=== PATIENT | female | born 1995 | race Caucasian/White ===

== ENCOUNTER 2017-09-30 16:00 | Emergency (ER) | payer BC ==
[2017-09-30] MEDS ORDERED: Albuterol/Ipratropium 3.0-0.5 MG/3 ML Neb Soln NEB ONE (16:06)
--- NOTE | 2017-09-30 16:12 | EDM.PDOC ---
ED HPI GENERAL MEDICAL PROBLEM - General Stated Complaint: ASTHMA Time Seen by Provider: 09/30/17 16:00 Source of Information: Reports: Patient, Family (friend) History Limitations: Reports: Respiratory Distress - History of Present Illness INITIAL COMMENTS - FREE TEXT/NARRATIVE: 22 years old w f with a H/O asthma, moved from [facility] to [place] and forgot her Inhalers and her breathing Machine. Both items are still in [facility]. She smokes cigarets and Marijuana. She woke came to the ED with her friend due to sob in the past few hours. No C/P, no N/V or any other acute medical issues. BP 119/75 Pulse 71 RR 20 Temp 97.2 O2 sat Onset Date: 09/30/17 Onset Time: 05:00 Duration: Hour(s):, Intermittent Location: Reports: Chest Quality: Reports: Same as Previous Episode Severity: Moderate Improves with: Reports: Medication, Rest Worsens with: Reports: Movement Context: Reports: Other (H/O astma, smoker, left her meds in [facility]. Moved to [facility] for now, smokes marijuana as well) Associated Symptoms: Reports: Cough, Shortness of Breath - Related Data Allergies Allergy/AdvReac Type Severity Reaction Status Date / Time codeine Allergy Vomiting Verified 09/30/17 16:25 medical tape Allergy Rash Uncoded 09/30/17 16:26 Home Meds: Home Meds .Bipolar Medication 1 tab PO BEDTIME 09/30/17 [History] Aspirin [Adult Aspirin] 81 mg PO BEDTIME 09/30/17 [History] ED ROS GENERAL - Review of Systems Review Of Systems: See Below Constitutional: Reports: No Symptoms HEENT: Reports: No Symptoms Respiratory: Reports: Shortness of Breath, Wheezing Cardiovascular: Reports: No Symptoms Endocrine: Reports: No Symptoms GI/Abdominal: Reports: No Symptoms : Reports: No Symptoms Musculoskeletal: Reports: No Symptoms Skin: Reports: No Symptoms Neurological: Reports: No Symptoms Psychiatric: Reports: No Symptoms Hematologic/Lymphatic: Reports: No Symptoms Immunologic: Reports: No Symptoms ED EXAM, GENERAL - Physical Exam Exam: See Below Exam Limited By: Respiratory Distress General Appearance: Alert, WD/WN, Mild Distress, Moderate Distress Eye Exam: Bilateral Eye: Normal Inspection Nose: Normal Inspection, Normal Mucosa, No Blood Throat/Mouth: Normal Inspection, Normal Lips, Normal Gums, No Airway Compromise , Other (poor dentition) Head: Atraumatic, Normocephalic Neck: Normal Inspection, Supple, Non-Tender, Full Range of Motion Respiratory/Chest: Respiratory Distress, Decreased Breath Sounds, Wheezing Cardiovascular: Normal Peripheral Pulses, Regular Rate, Rhythm, No Edema, No Gallop, No JVD, No Murmur, No Rub Peripheral Pulses: 1+: Radial (R) GI/Abdominal: Normal Bowel Sounds, Soft, Non-Tender, No Organomegaly, No Distention, No Abnormal Bruit, No Mass, Pelvis Stable (Female) Exam: Deferred Rectal (Female) Exam: Deferred Back Exam: Normal Inspection, Full Range of Motion Extremities: Normal Inspection, Normal Range of Motion, Non-Tender, No Pedal Edema, Normal Capillary Refill Neurological: Alert, Oriented, CN II-XII Intact, Normal Cognition, Normal Gait, No Motor/Sensory Deficits Psychiatric: Normal Affect, Normal Mood Skin Exam: Warm, Dry, Intact, Normal Color, No Rash Lymphatic: No Adenopathy Course - Vital Signs Text/Narrative:: 22 years old w f with a H/O asthma, moved from [facility] to [place] and forgot her Inhalers and her breathing Machine. Both items are still in [facility]. She smokes cigarets and Marijuana. She woke came to the ED with her friend due to sob in the past few hours. No C/P, no N/V or any other acute medical issues. BP 119/75 Pulse 71 RR 20 Temp 97.2 O2 sat 100% PE: WNWD W F with exp wheezes, H/O Asthma Impression: Asthma exacerbation, non compliance Tx: Porsha Reexam: SOB subsided, 100% improvement Plan: D/C with instructions Last Recorded V/S: Last Vital Signs Temp 36.5 C 09/30/17 16:10 Pulse 71 09/30/17 16:10 Resp 20 09/30/17 16:10 BP 119/75 09/30/17 16:10 Pulse Ox 100 09/30/17 16:10 - Orders/Labs/Meds Orders: Active Orders 24 hr Category Date Time Status RT Aerosol Therapy [RC] ASDIRECTED Care 09/30/17 16:06 Active Meds: Medications Discontinued Medications Generic Name Dose Route Start Last Admin Trade Name Freq PRN Reason Stop Dose Admin Albuterol/Ipratropium 3 ml 09/30/17 16:06 Duoneb 3.0-0.5 Mg/3 Ml NEB 09/30/17 16:07 ONETIME ONE Departure - Departure Time of Disposition: 16:29 Disposition: Home, Self-Care 01 Condition: Good Clinical Impression: Asthma exacerbation Qualifiers: Asthma severity: moderate Asthma persistence: unspecified Qualified Code(s): J45.901 - Unspecified asthma with (acute) exacerbation - Discharge Information Instructions: Asthma, Adult, Albuterol inhalation aerosol Referrals: PCP,Not In Area [Primary Care Provider] - Forms: ED Department Discharge, ED Return to Work/School Form Additional Instructions: Please quit tobacco and Marijuana use, please use the albuterol inhaler as recommended, please f/u with your PMD, come back if your symptoms get worse acutely - My Orders Last 24 Hours: My Active Orders 09/30/17 16:06 RT Aerosol Therapy [RC] ASDIRECTED - Assessment/Plan Last 24 Hours: My Active Orders 09/30/17 16:06 RT Aerosol Therapy [RC] ASDIRECTED
[2017-09-30] MEDS ORDERED: Albuterol 8 GM Inhaler INH ONE (16:28)
== END 2017-09-30 16:45 | disposition home or self-care (01) ==
LOC: FB.ED 16:00
DX: J45.901 Unspecified asthma with (acute) exacerbation (principal); Z88.5 Allergy status to narcotic agent
CPT/HCPCS: 94640; 99284; A9270-GY; J7620

== ENCOUNTER 2017-11-04 13:59 | Emergency (ER) | payer BC ==
--- NOTE | 2017-11-04 14:29 | EDM.PDOC ---
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 Pt came to the ed due to blurred vision. Pt is otherwise in her usual state of health. No N/V/D no SOB, No Dizziness. BP 122/70 RR 18 Pulse ox 100% Pulse 78 Temp 36.8 Onset: Today Onset Date: 11/04/17 Onset Time: 04:00 Duration: Hour(s): Location: Reports: Generalized Quality: Reports: Same as Previous Episode Severity: Mild Improves with: Reports: Rest Worsens with: Reports: Movement Context: Reports: Other Associated Symptoms: Reports: Other (blurred vision) - Related Data Allergies Allergy/AdvReac Type Severity Reaction Status Date / Time codeine Allergy Vomiting Verified 11/04/17 20:37 medical tape Allergy Rash Uncoded 11/04/17 20:37 Home Meds: Home Meds .Bipolar Medication 1 tab PO BEDTIME 09/30/17 [History] Aspirin [Adult Aspirin] 81 mg PO BEDTIME 09/30/17 [History] Past Medical History Respiratory History: Reports: Asthma - Past Surgical History Cardiovascular Surgical History: Reports: Other (See Below) Other Cardiovascular Surgeries/Procedures: 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 ED ROS GENERAL - Review of Systems Review Of Systems: See Below Constitutional: Reports: No Symptoms HEENT: Reports: Other (blurred vision) Respiratory: Reports: No Symptoms Cardiovascular: Reports: No Symptoms Endocrine: Reports: No Symptoms GI/Abdominal: Reports: No Symptoms : Reports: No Symptoms Musculoskeletal: Reports: No Symptoms Skin: Reports: No Symptoms Neurological: Reports: No Symptoms Psychiatric: Reports: No Symptoms Hematologic/Lymphatic: Reports: No Symptoms Immunologic: Reports: No Symptoms ED EXAM GENERAL W FULL EYE - Physical Exam Exam: See Below Exam Limited By: No Limitations General Appearance: Alert, WD/WN, No Apparent Distress Eye Exam: Bilateral Eye: Other (blurred vision ) Visual Acuity (R) 20/: 50 Visual Acuity (L) 20/: 50 With Correction: No Eyelids: Bilateral: Normal Appearance Conjunctiva & Sclera: Bilateral: Normal Appearance Pupils: Normal Accommodation Pupillary Size: Bilateral: 3 mm Pupillary Reaction: Bilateral: Brisk Ears: Normal External Exam Nose: Normal Inspection, Normal Mucosa Throat/Mouth: Normal Inspection Head: Atraumatic, Normocephalic Neck: Normal Inspection, Supple, Non-Tender Respiratory/Chest: No Respiratory Distress, Lungs Clear, Normal Breath Sounds Cardiovascular: Normal Peripheral Pulses, Regular Rate, Rhythm GI/Abdominal: Normal Bowel Sounds (Male) Exam: Deferred (Female) Exam: Deferred Rectal (Males) Exam: Deferred Rectal (Female) Exam: Deferred Back Exam: Normal Inspection Extremities: Normal Inspection Neurological: Alert, Oriented, CN II-XII Intact, Normal Cognition, Normal Gait, No Motor/Sensory Deficits Psychiatric: Normal Affect, Normal Mood Skin Exam: Warm, Dry, Intact, Normal Color, No Rash Lymphatic: No Adenopathy EKG INTERPRETATION EKG Date: 11/04/17 Time: 14:10 Rhythm: NSR Rate (Beats/Min): 78 [place]: Normal P-Wave: Present QRS: RBBB ST-T: Normal QT: Normal Comparison: NA - No Prior EKG Course - Vital Signs Text/Narrative:: 22 y.o.w.f was feeling weak at work and 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 Pt came to the ed due to blurred vision. Pt left her glasses in [place] [facility] is otherwise in her usual state of health. No N/V/D no SOB, No Dizziness. BP 122/70 RR 18 Pulse ox 100% Pulse 78 Temp 36.8 PE: WNWD W F NAD C/O blurred vision Visual acuity: 20/50 bilateral, not corrected. Pt left her glasses in [facility] Impression: Blurred vision Tx: None Plan: D/C with instructions Last Recorded V/S: Last Vital Signs Temp 36.8 C 11/04/17 14:00 Pulse 86 11/04/17 14:00 Resp 18 11/04/17 14:00 BP 122/70 11/04/17 14:00 Pulse Ox 100 11/04/17 14:00 Orthostatic Blood Pressure [ 121/84 Standing] Orthostatic Blood Pressure [ 122/63 Supine] - Orders/Labs/Meds Orders: Active Orders 24 hr Category Date Time Status Orthostatic Vital Signs [RC] ASDIRECTED Care 11/04/17 14:23 Active Visual Acuity [Vision Test] [RC] ASDIRECTED Care 11/04/17 15:41 Active DRUG SCREEN, URINE ALERE [URCHEM] Stat Lab 11/04/17 14:40 Ordered UA W/MICROSCOPIC [URIN] Stat Lab 11/04/17 14:40 Ordered EKG 12 Lead [EK] Routine Ther 11/04/17 14:05 Ordered Labs: Laboratory Tests 11/04/17 11/04/17 Range/Units 14:40 14:40 Urine Color [place] (YELLOW) Urine Appearance Slightly cloudy (CLEAR) Urine pH 8.0 H (5.0-6.5) Ur Specific [place] 1.015 (1.010-1.025) Urine Protein Negative (NEGATIVE) mg/dL Urine Glucose (UA) Normal (NEGATIVE) mg/dL Urine Ketones Negative (NEGATIVE) mg/dL Urine Occult Blood Large H (NEGATIVE) Urine Nitrite Negative (NEGATIVE) Urine Bilirubin Negative (NEGATIVE) Urine Urobilinogen Normal (NEGATIVE) mg/dL Ur Leukocyte Esterase Negative (NEGATIVE) Urine RBC 20-30 H (0) Urine WBC 0-5 (0) Ur Squamous Epith Cells Occasional (NS,R,O) Amorphous Sediment Few Urine Bacteria Rare H (NS) Urine Opiates Screen Negative (NEGATIVE) Ur Oxycodone Screen Negative (NEGATIVE) Ur Propoxyphene Screen Negative (NEGATIVE) Ur Barbituates Screen Negative (NEGATIVE) Ur Tricyclics Screen Negative (NEGATIVE) Ur Phencyclidine Scrn Negative (NEGATIVE) Ur Amphetamine Screen Negative (NEGATIVE) Urine MDMA Screen Negative (NEGATIVE) U Benzodiazepines Scrn Negative (NEGATIVE) U Cocaine Metab Screen Negative (NEGATIVE) U Marijuana (THC) Screen Negative (NEGATIVE) Departure - Departure Time of Disposition: 15:58 Disposition: Home, Self-Care 01 Condition: Good Clinical Impression: Blurred vision, bilateral Hematuria Qualifiers: Hematuria type: other microscopic Qualified Code(s): R31.29 - Other microscopic hematuria - Discharge Information Instructions: Nonspecific Chest Pain, [id number] Referrals: Suzanne Croft LAND ACQUISITION ANALYST [Primary Care Provider] - Forms: ED Return to Work/School Form Additional Instructions: Please f/u with your PMD, please come back if any symptoms get acutely worse - My Orders Last 24 Hours: My Active Orders 11/04/17 14:05 EKG 12 Lead [EK] Routine 11/04/17 14:23 Orthostatic Vital Signs [RC] ASDIRECTED 11/04/17 14:40 DRUG SCREEN, URINE ALERE [URCHEM] Stat UA W/MICROSCOPIC [URIN] Stat 11/04/17 15:41 Visual Acuity [Vision Test] [RC] ASDIRECTED - Assessment/Plan Last 24 Hours: My Active Orders 11/04/17 14:05 EKG 12 Lead [EK] Routine 11/04/17 14:23 Orthostatic Vital Signs [RC] ASDIRECTED 11/04/17 14:40 DRUG SCREEN, URINE ALERE [URCHEM] Stat UA W/MICROSCOPIC [URIN] Stat 11/04/17 15:41 Visual Acuity [Vision Test] [RC] ASDIRECTED
== END 2017-11-04 16:26 | disposition home or self-care (01) ==
LOC: FB.ED 13:59
DX: H53.8 Other visual disturbances (principal); R31.29 Other microscopic hematuria; Z88.5 Allergy status to narcotic agent; Z91.048 Other nonmedicinal substance allergy status
CPT/HCPCS: 80305; 81001; 93005; 99285

== ENCOUNTER 2017-11-17 13:25 | Emergency (ER) | payer SELFPAY ==
--- NOTE | 2017-11-20 10:59 | ER ---
DATE SEEN: 11/17/2017 TIME SEEN: The patient was seen at 1349 hours. HISTORY OF PRESENT ILLNESS: Mary is a 22-year-old woman who is a smoker who has asthma and depression, comes in onset of sore throat last night with fever. She complains of right ear discomfort, right throat discomfort. She has had tetralogy of Fallot surgery with correction of heart murmur. Otherwise, smokes. Alcohol negative. Street drugs negative. PAST MEDICAL HISTORY: Negative otherwise as noted above. ALLERGIES: Codeine and medical tape. REVIEW OF SYSTEMS: Negative. PHYSICAL EXAMINATION: VITAL SIGNS: Blood pressure 116/77, heart rate 85 and regular, respirations 18, oxygen saturation 100%, temperature 36.7 degrees centigrade. Weight 72.5 kg, 24.3 kg/m2. GENERAL: Alert woman who looks in moderate distress. She is attended by another friend. HEENT: ADAN. Intact. Pharynx, marked erythema and tonsillar enlargement. No exudate noted. NECK: Right neck, mild cervical adenopathy. Neck is supple. No bruits. LUNGS: Clear without rales or rhonchi. HEART: S1, S2. Soft systolic murmur, left parasternal, right parasternal, left midclavicular line, ribs 3, 4, 5, and 6. ABDOMEN: No hepatosplenomegaly. No jugular venous distention. S2 is greater than S1. Splitting of S3 and S4 and S1, has diastolic systolic gallop. EXTREMITIES: Without edema. ASSESSMENT: Streptococcal pharyngitis, positive strep throat. PLAN: The patient treated with penicillin VK 500 mg b.i.d., 20 tablets. Follow up with doctor as needed in next 1 to 2 weeks. Ibuprofen and Tylenol as needed. /[id number] REILLY/YASL
== END 2017-11-17 14:29 | disposition home or self-care (01) ==
LOC: FB.ED 13:25
DX: J02.0 Streptococcal pharyngitis (principal); F17.210 Nicotine dependence, cigarettes, uncomplicated; Z91.048 Other nonmedicinal substance allergy status
CPT/HCPCS: 87880-QW; 99283

== ENCOUNTER 2018-06-11 18:05 | Emergency (ER) | payer SELFPAY ==
--- NOTE | 2018-06-11 18:50 | EDM.PDOC ---
ED HPI GENERAL MEDICAL PROBLEM - General Chief Complaint: Chest Pain Stated Complaint: CHEST PAIN Time Seen by Provider: 06/11/18 18:15 Source of Information: Reports: Patient History Limitations: Reports: No Limitations - History of Present Illness INITIAL COMMENTS - FREE TEXT/NARRATIVE: Mary is a 22-year-old single smoking woman who works at the [place] [employer] does fairly heavy lifting noted onset 4-5 days ago 7-9/10 chest pain lasting 1/2-2 hours. The extent of her pain resolution is variable sometimes resolves when she puts her right arm to straight extension over her head. When she does this her heart pain sometimes goes way down to 3/10 hold goes away completely. She's had 2 heart surgeries 1) and 2 years ago and has been followed by shirring machine operator automatic from [facility]. Her last cardiology visit was 04/24. - Related Data Allergies Allergy/AdvReac Type Severity Reaction Status Date / Time codeine Allergy Vomiting Verified 11/17/17 13:38 medical tape Allergy Rash Uncoded 11/17/17 13:38 Home Meds: Home Meds .Bipolar Medication 1 tab PO BEDTIME 09/30/17 [History] Aspirin [Adult Aspirin] 81 mg PO BEDTIME 09/30/17 [History] Albuterol [Proventil HFA] 2 puff INH Q4H PRN 11/17/17 [History] Montelukast [Singulair] 10 mg PO DAILY 11/17/17 [History] Penicillin V Potassium 500 mg PO BID #20 tablet 11/17/17 [Rx] Past Medical History Cardiovascular History: Reports: Heart Murmur, Other (See Below) Other Cardiovascular History: Tetrology of fallot Respiratory History: Reports: Asthma Musculoskeletal History: Reports: Fracture Other Musculoskeletal History: hx bilat fx arms, dislocated R knee - Past Surgical History HEENT Surgical History: Reports: Oral Surgery Cardiovascular Surgical History: Reports: Other (See Below) Other Cardiovascular Surgeries/Procedures: 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 Social & Family History - Family History Family Medical History: Noncontributory - Caffeine Use Caffeine Use: Reports: Soda ED ROS GENERAL - Review of Systems Review Of Systems: ROS reveals no pertinent complaints other than HPI. ED EXAM, GENERAL - Physical Exam Exam: See Below Free Text/Narrative:: Pleasant happy woman in mild distress no diaphoresis. Normotensive no tachycardia. Exam Limited By: No Limitations General Appearance: Alert, Mild Distress Eye Exam: Bilateral Eye: Normal Inspection Ear Exam: Bilateral Ear: Auricle Normal, Canal Normal, TM normal Nose: Normal Inspection Throat/Mouth: Normal Inspection, Normal Lips, Normal Teeth, Normal Gums, Normal Oropharynx, Normal Voice, No Airway Compromise Head: Atraumatic, Normocephalic Neck: Normal Inspection, Supple Respiratory/Chest: No Respiratory Distress, Lungs Clear Cardiovascular: Normal Peripheral Pulses, Regular Rate, Rhythm, No Edema, No JVD , Other (S4 gallop left parasternal II/V dalal systolic with mild crescendo decrescendo component. ) Peripheral Pulses: 1+: Carotid (L), Carotid (R), Brachial (L), Brachial (R), Femoral (L), Femoral (R) GI/Abdominal: Normal Bowel Sounds, Soft, Non-Tender, No Organomegaly, No Distention, No Abnormal Bruit, No Mass (Female) Exam: Deferred Rectal (Female) Exam: Deferred Back Exam: Normal Inspection Extremities: Normal Inspection, Normal Range of Motion, Non-Tender, No Pedal Edema, Normal Capillary Refill Neurological: Alert, Oriented, CN II-XII Intact, Normal Cognition, Normal Gait, Normal Reflexes, No Motor/Sensory Deficits Psychiatric: Normal Affect, Normal Mood Skin Exam: Warm, Dry, Intact, Normal Color, No Rash Lymphatic: No Adenopathy EKG INTERPRETATION Rhythm: NSR Course - Orders/Labs/Meds Orders: Active Orders 24 hr Category Date Time Status EKG Documentation Completion [RC] ASDIRECTED Care 06/11/18 18:25 Active EKG Documentation Completion [RC] ASDIRECTED Care 06/11/18 18:26 Active CXR [Chest 1V Frontal] [CR] Stat Exams 06/11/18 18:40 Ordered CXR [Chest 2V] [CR] Stat Exams 06/11/18 18:26 Taken DRUG SCREEN, URINE ALERE [URCHEM] Urgent Lab 06/11/18 18:25 Ordered EKG 12 Lead [EK] Routine Ther 06/11/18 18:26 Ordered Labs: Laboratory Tests 06/11/18 06/11/18 06/11/18 Range/Units 18:35 18:35 18:35 WBC 5.3 (4.5-12.0) X10-3/uL RBC 4.50 (3.23-5.20) x10(6)uL Hgb 14.0 (11.5-15.5) g/dL Hct 42.2 (30.0-51.3) % MCV 93.7 (80-96) fL MCH 31.1 (27.7-33.6) pg MCHC 33.2 (32.2-35.4) g/dL RDW 12.7 (11.5-15.5) % Plt Count 221 (125-369) X10(3)uL MPV 8.6 (7.4-10.4) fL Neut % (Auto) 62.5 (46-82) % Lymph % (Auto) 27.4 (13-37) % [place] % (Auto) 7.7 (4-12) % Eos % (Auto) 2 (1.0-5.0) % Baso % (Auto) 1 (0-2) % Neut # (Auto) 3.4 (1.6-8.3) # Lymph # (Auto) 1.4 (0.6-5.0) # [place] # (Auto) 0.4 (0.0-1.3) # Eos # (Auto) 0.1 (0.0-0.8) # Baso # (Auto) 0.0 (0.0-0.2) # D-Dimer, Quantitative < 0.19 (0.0-0.59) mg/LFEU Sodium (135-145) mmol/L Potassium (3.5-5.3) mmol/L Chloride (100-110) mmol/L Carbon Dioxide (21-32) mmol/L BUN (7-18) mg/dL Creatinine (0.55-1.02) mg/dL Est Cr Clr Drug Dosing Estimated GFR (MDRD) (>60) BUN/Creatinine Ratio (9-20) Glucose (80-116) mg/dL Calcium (8.6-10.2) mg/dL Total Bilirubin (0.1-1.3) mg/dL AST (5-25) IU/L ALT (12-36) U/L Alkaline Phosphatase (56-112) IU/L Troponin I 0.036 (<0.017-0.056) ng/mL Total Protein (6.0-8.0) g/dL Albumin (3.5-5.2) g/dL Globulin g/dL Albumin/Globulin Ratio 06/11/18 Range/Units 18:35 WBC (4.5-12.0) X10-3/uL RBC (3.23-5.20) x10(6)uL Hgb (11.5-15.5) g/dL Hct (30.0-51.3) % MCV (80-96) fL MCH (27.7-33.6) pg MCHC (32.2-35.4) g/dL RDW (11.5-15.5) % Plt Count (125-369) X10(3)uL MPV (7.4-10.4) fL Neut % (Auto) (46-82) % Lymph % (Auto) (13-37) % [place] % (Auto) (4-12) % Eos % (Auto) (1.0-5.0) % Baso % (Auto) (0-2) % Neut # (Auto) (1.6-8.3) # Lymph # (Auto) (0.6-5.0) # [place] # (Auto) (0.0-1.3) # Eos # (Auto) (0.0-0.8) # Baso # (Auto) (0.0-0.2) # D-Dimer, Quantitative (0.0-0.59) mg/LFEU Sodium 141 (135-145) mmol/L Potassium 3.8 (3.5-5.3) mmol/L Chloride 106 (100-110) mmol/L Carbon Dioxide 29 (21-32) mmol/L BUN 13 (7-18) mg/dL Creatinine 0.9 (0.55-1.02) mg/dL Est Cr Clr Drug Dosing TNP Estimated GFR (MDRD) > 60 (>60) BUN/Creatinine Ratio 14.4 (9-20) Glucose 80 (80-116) mg/dL Calcium 8.9 (8.6-10.2) mg/dL Total Bilirubin 1.1 (0.1-1.3) mg/dL AST 15 (5-25) IU/L ALT 15 (12-36) U/L Alkaline Phosphatase 69 (56-112) IU/L Troponin I (<0.017-0.056) ng/mL Total Protein 6.9 (6.0-8.0) g/dL Albumin 3.6 (3.5-5.2) g/dL Globulin 3.3 g/dL Albumin/Globulin Ratio 1.1 Departure - Departure Time of Disposition: 19:30 (Abnormalities noted on her laboratory tests. However she has a slight bootie heart slightly enlarged heart. There is trace S2. She has her aortic valve implant is noted on the chest x-ray. EKG pending. Patient will be dismissed home follow up with doctor as needed otherwise in a week.) Disposition: Home, Self-Care 01 Condition: Good Clinical Impression: Chest wall discomfort, Tetralogy of Fallot - Discharge Information *PRESCRIPTION DRUG MONITORING PROGRAM REVIEWED*: Not Applicable *COPY OF PRESCRIPTION DRUG MONITORING REPORT IN PATIENT KELLY: Not Applicable Referrals: PCP,None [Primary Care Provider] - Forms: ED Department Discharge Additional Instructions: There is no evidence for any heart injury with your chest pain. Perhaps the chest discomfort you are experiencing as purely mechanical and related to changes in your chest wall muscles. I find this is quite likely because you get relief when you point your arm overhead. That is your discomfort mechanical and not related to any cardiac structural abnormality. Follow-up with her doctor in a week. - My Orders Last 24 Hours: My Active Orders 06/11/18 18:25 EKG Documentation Completion [RC] ASDIRECTED DRUG SCREEN, URINE ALERE [URCHEM] Urgent 06/11/18 18:26 EKG Documentation Completion [RC] ASDIRECTED CXR [Chest 2V] [CR] Stat EKG 12 Lead [EK] Routine 06/11/18 18:40 CXR [Chest 1V Frontal] [CR] Stat - Assessment/Plan Last 24 Hours: My Active Orders 06/11/18 18:25 EKG Documentation Completion [RC] ASDIRECTED DRUG SCREEN, URINE ALERE [URCHEM] Urgent 06/11/18 18:26 EKG Documentation Completion [RC] ASDIRECTED CXR [Chest 2V] [CR] Stat EKG 12 Lead [EK] Routine 06/11/18 18:40 CXR [Chest 1V Frontal] [CR] Stat
--- NOTE | 2018-06-12 11:39 | CR ---
INDICATION: Tetralogy of Fallot, two ancient cardiac surgeries, chest pain. CHEST: An AP upright portable view of the chest was obtained 06/11/18 - no comparisons. The heart appears mildly prominent in size to mildly enlarged. Postsurgical changes are noted at the waist of the heart and area of the aortic arch. An active infiltrate or effusion was not identified - no definite evidence of CHF is seen. IMPRESSION: No definite acute process, status post surgical repair for Tetralogy of Fallot. MTDD
== END 2018-06-11 20:10 | disposition home or self-care (01) ==
LOC: FB.ED 18:05
DX: R07.89 Other chest pain (principal); Q21.3 Tetralogy of Fallot; Z88.5 Allergy status to narcotic agent; Z91.09 Other allergy status, other than to drugs and biological substances; Z79.82 Long term (current) use of aspirin; Z79.899 Other long term (current) drug therapy
CPT/HCPCS: 36415; 71045; 80053; 80305-QW; 84484; 85025; 85379; 93005; 99285

== ENCOUNTER 2019-06-22 18:44 | Emergency (ER) | payer SELFPAY ==
--- NOTE | 2019-06-22 20:09 | EDM.PDOC ---
ED HPI GENERAL MEDICAL PROBLEM - General Chief Complaint: General Stated Complaint: PELVIC BACK TAILBONE PAIN Time Seen by Provider: 06/22/19 19:10 Source of Information: Reports: Patient History Limitations: Reports: No Limitations - History of Present Illness INITIAL COMMENTS - FREE TEXT/NARRATIVE: pt c/o gen weakness and low back pain x 5 days , report low grade fever on and off, denies any urinary sx or any other associated sx or medical concerns. - Related Data Allergies Allergy/AdvReac Type Severity Reaction Status Date / Time codeine Allergy Vomiting Verified 06/11/18 23:11 medical tape Allergy Rash Uncoded 06/11/18 23:11 Home Meds: Home Meds Aspirin 81 mg PO DAILY 06/11/18 [History] Past Medical History Cardiovascular History: Reports: Heart Murmur, Other (See Below) Other Cardiovascular History: Tetrology of fallot Respiratory History: Reports: Asthma Musculoskeletal History: Reports: Fracture Other Musculoskeletal History: hx bilat fx arms, dislocated R knee Psychiatric History: Reports: Anxiety, Bipolar, Depression - Past Surgical History HEENT Surgical History: Reports: Oral Surgery Cardiovascular Surgical History: Reports: Other (See Below) Other Cardiovascular Surgeries/Procedures: 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 Social & Family History - Family History Family Medical History: Noncontributory - Tobacco Use Smoking Status *Q: Current Every Day Smoker Years of Tobacco use: 5 Packs/Tins Daily: 0.5 - Caffeine Use Caffeine Use: Reports: Soda - Alcohol Use Days Per Week of Alcohol Use: 4 Number of Drinks Per Day: 2 Total Drinks Per Week: 8 - Recreational Drug Use Recreational Drug Use: No Other Recreational Drug Type: pt. denies recreational drug use ED ROS GENERAL - Review of Systems Review Of Systems: See Below Constitutional: Reports: Fever, Fatigue HEENT: Reports: No Symptoms Respiratory: Reports: No Symptoms Cardiovascular: Reports: No Symptoms GI/Abdominal: Reports: No Symptoms : Reports: No Symptoms Musculoskeletal: Reports: Back Pain Skin: Reports: No Symptoms Neurological: Reports: No Symptoms Psychiatric: Reports: No Symptoms ED EXAM, GENERAL - Physical Exam Exam: See Below Exam Limited By: No Limitations General Appearance: Alert, No Apparent Distress Ears: Normal External Exam, Normal TMs Ear Exam: Bilateral Ear: TM normal Nose: Normal Inspection Throat/Mouth: Normal Inspection, Normal Oropharynx Head: Atraumatic Neck: Normal Inspection, Non-Tender, Full Range of Motion Respiratory/Chest: No Respiratory Distress, Lungs Clear, Normal Breath Sounds, No Accessory Muscle Use Cardiovascular: Normal Peripheral Pulses, Regular Rate, Rhythm, No Murmur GI/Abdominal: Normal Bowel Sounds, Soft, Non-Tender Rectal (Female) Exam: Normal Exam Back Exam: Normal Inspection, Full Range of Motion Extremities: Normal Inspection, Normal Range of Motion, No Pedal Edema, Normal Capillary Refill Neurological: Alert, Oriented, CN II-XII Intact, Normal Cognition, Normal Gait, No Motor/Sensory Deficits Psychiatric: Normal Affect, Normal Mood Skin Exam: Warm Course - Vital Signs Text/Narrative:: pt has UTI, will send for culture and treat with macrobid, also supportive mng. Last Recorded V/S: Last Vital Signs Temp 36.6 C 06/22/19 19:10 Pulse 86 06/22/19 19:10 Resp 16 06/22/19 19:10 BP 109/61 06/22/19 19:10 Pulse Ox 96 06/22/19 19:10 - Orders/Labs/Meds Orders: Active Orders 24 hr Category Date Time Status CULTURE URINE [RM] Stat Lab 06/22/19 20:02 Ordered Labs: Laboratory Tests 06/22/19 Range/Units 19:30 Urine Color Yellow (YELLOW) Urine Appearance Cloudy (CLEAR) Urine pH 5.0 (5.0-6.5) Ur Specific [place] 1.020 (1.010-1.025) Urine Protein 500 H (NEGATIVE) mg/dL Urine Glucose (UA) Normal (NORMAL) mg/dL Urine Ketones 15 H (NEGATIVE) mg/dL Urine Occult Blood Moderate H (NEGATIVE) Urine Nitrite Negative (NEGATIVE) Urine Bilirubin Small H (NEGATIVE) Urine Urobilinogen 4 H (NEGATIVE) mg/dL Ur Leukocyte Esterase Moderate H (NEGATIVE) Urine RBC 5-10 H (0-5) Urine WBC 20-30 H (0-5) Ur Squamous Epith Cells Few H (NS,R,O) Amorphous Sediment Moderate Urine Bacteria Few H (NS) Departure - Departure Time of Disposition: 20:09 Disposition: Home, Self-Care 01 Clinical Impression: UTI (urinary tract infection) - Discharge Information Referrals: PCP,None [Primary Care Provider] - Sepsis Event Note - Evaluation Sepsis Screening Result: No Definite Risk - Focused Exam Vital Signs: Vital Signs Temp Pulse Resp BP Pulse Ox 02/15/20 19:10 36.6 C 86 16 109/61 96 Date Exam was Performed: 06/22/19 Time Exam was Performed: 20:04 - My Orders Last 24 Hours: My Active Orders 06/22/19 20:02 CULTURE URINE [] Stat - Assessment/Plan Last 24 Hours: My Active Orders 06/22/19 20:02 CULTURE URINE [] Stat
[2019-06-22] MEDS ORDERED: Nitrofurantoin Monohydrate/Macrocrystalline 100 MG Cap PO ONE (20:19)
== END 2019-06-22 20:40 | disposition home or self-care (01) ==
LOC: FB.ED 18:44
DX: N39.0 Urinary tract infection, site not specified (principal); J45.909 Unspecified asthma, uncomplicated; Z88.5 Allergy status to narcotic agent; Z79.82 Long term (current) use of aspirin
CPT/HCPCS: 81001; 87086; 87088; 87186; 87804; 99285; A9270

== ENCOUNTER 2021-02-13 11:37 | Emergency (ER) | payer SELFPAY ==
[2021-02-13] MEDS ORDERED: Penicillin V Potassium 500 MG Tab PO STA (11:50)
[2021-02-13] MEDS ORDERED: Ketorolac 30 MG/ML SDV IM ONE (11:50)
--- NOTE | 2021-02-13 11:59 | EDM.PDOC ---
ED HPI GENERAL MEDICAL PROBLEM - General Chief Complaint: ENT Problem Stated Complaint: MOUTH/HEAD PAIN Time Seen by Provider: 02/13/21 11:45 Source of Information: Reports: Patient, Old Records, RN History Limitations: Reports: No Limitations - History of Present Illness INITIAL COMMENTS - FREE TEXT/NARRATIVE: 25 yo female presents with dental pain. She was initially seen for this a month ago in [place] and was given and antibiotic/pain meds. She has an appt now this next Monday with a dentist and has had pain now progressive for the past 2-3 days again. She martinez her primary care provider's office and was only offered an appt for later this next week. She has been taking acetaminophen(not able to tell me the dose) and ibuprofen until she ran out of the ibuprofen. Her last acetaminophen dose was last evening. No fever. Now has a developing lump to the roof of her mouth that is causing a SMALL. Onset: Gradual Onset Date: 02/10/21 Duration: Day(s):, Getting Worse Location: Reports: Head, Face Quality: Reports: Ache Severity: Severe Improves with: Reports: None Worsens with: Reports: Other (time) Context: Reports: Other (See HPI) Associated Symptoms: Reports: Headaches. Denies: Fever/Chills Treatments MEDICAL LAB TECH INSTRUCTOR: Reports: Acetaminophen Other Treatments MEDICAL LAB TECH INSTRUCTOR: last at 0200 Right Upper Oral/Mouth Pain Score (Numeric/FACES): 10 - Related Data Allergies Allergy/AdvReac Type Severity Reaction Status Date / Time codeine Allergy Vomiting Verified 06/22/19 20:08 ibuprofen [From Advil] Allergy Seizure Verified 06/22/19 20:08 medical tape Allergy Rash Uncoded 06/22/19 20:08 Home Meds: Home Meds Nitrofurantoin Monohyd/M-Cryst [Macrobid 100 mg Capsule] 100 mg PO BID 10 Days #20 capsule 06/22/19 [Rx] Aspirin 81 mg PO DAILY 06/23/19 [History] Acetaminophen/HYDROcodone [HYDROcodone-Acetaminophen 5-325 MG *] 1 - 2 tab PO Q6H PRN #10 each 02/13/21 [Rx] Penicillin V Potassium 500 mg PO Q6HR #40 tab 02/13/21 [Rx] Past Medical History Cardiovascular History: Reports: Heart Murmur, Other (See Below) Other Cardiovascular History: Tetrology of fallot Respiratory History: Reports: Asthma Musculoskeletal History: Reports: Fracture Other Musculoskeletal History: hx bilat fx arms, dislocated R knee Psychiatric History: Reports: Anxiety, Bipolar, Depression - Past Surgical History HEENT Surgical History: Reports: Oral Surgery Cardiovascular Surgical History: Reports: Other (See Below) Other Cardiovascular Surgeries/Procedures: 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 Social & Family History - Family History Family Medical History: No Pertinent Family History - Caffeine Use Caffeine Use: Reports: Soda ED ROS ENT - Review of Systems Review Of Systems: See Below Constitutional: Reports: No Symptoms HEENT: Reports: Dental Pain (R upper, wisdom tooth) Respiratory: Reports: No Symptoms Cardiovascular: Reports: No Symptoms GI/Abdominal: Reports: No Symptoms : Reports: No Symptoms Musculoskeletal: Reports: No Symptoms Skin: Reports: No Symptoms Neurological: Reports: Headache ED EXAM, ENT - Physical Exam Exam: See Below Exam Limited By: No Limitations General Appearance: Alert, WD/WN, No Apparent Distress Eye Exam: Bilateral Eye: Normal Inspection Ears: Normal External Exam, Normal Canal, Hearing Grossly Normal Nose: Normal Inspection, No Blood Mouth/Throat: Normal Lips, Normal Oropharynx, Dental Abcess (R maxillary wisdom tooth is broken off and decayed. ), Other (approx 1.5 x .7 cm abcess to the roof of her mouth). No: Normal Teeth, Pharyngeal Erythema Head: Atraumatic, Normocephalic Neck: Normal Inspection. No: Lymphadenopathy (R), Lymphadenopathy (L) Respiratory/Chest: No Respiratory Distress, Lungs Clear, Normal Breath Sounds, No Accessory Muscle Use Cardiovascular: Regular Rate, Rhythm, No Edema Extremities: Normal Inspection Neurological: Alert, Oriented, CN II-XII Intact, Normal Cognition, No Motor/Sensory Deficits Psychiatric: Normal Affect, Normal Mood Skin: Warm, Dry, Intact, Normal Color, No Rash Course - Vital Signs Last Recorded V/S: Last Vital Signs Temp 36.6 C 02/13/21 11:37 Pulse 89 02/13/21 11:37 Resp 20 02/13/21 11:37 BP 129/86 02/13/21 11:37 Pulse Ox 97 02/13/21 11:37 - Orders/Labs/Meds Meds: Medications Discontinued Medications Generic Name Dose Route Start Last Admin Trade Name Freq PRN Reason Stop Dose Admin Ketorolac Tromethamine 30 mg 02/13/21 11:50 02/13/21 11:59 Ketorolac 30 Mg/Ml Sdv IM 02/13/21 11:51 30 mg ONETIME ONE Administration Penicillin V Potassium 500 mg 02/13/21 11:50 Penicillin V Potassium 500 Mg Tab PO 02/13/21 11:51 NOW STA Departure - Departure Time of Disposition: 12:15 Disposition: Home, Self-Care 01 Condition: Fair Clinical Impression: Dental abscess - Discharge Information *PRESCRIPTION DRUG MONITORING PROGRAM REVIEWED*: Not Applicable *COPY OF PRESCRIPTION DRUG MONITORING REPORT IN PATIENT KELLY: Not Applicable Prescriptions: Acetaminophen/HYDROcodone [HYDROcodone-Acetaminophen 5-325 MG *] 1 - 2 tab PO Q6H PRN #10 each PRN Reason: Pain Penicillin V Potassium 500 mg PO Q6HR #40 tab Referrals: PCP,None [Ordering Only Provider] - Forms: ED Department Discharge Additional Instructions: Take penicillin every 6 hrs until gone. Take naproxen sodium(generic Aleve) 2 every 8-12 hrs with food for pain relief. Add either acetaminophen 1000 mg every 6 hrs OR hydrocodone/APAP for added relief. Keep your appts as scheduled. Sepsis Event Note (ED) - Evaluation Sepsis Screening Result: No Definite Risk - Focused Exam Vital Signs: Vital Signs Temp Pulse Resp BP Pulse Ox 02/13/21 11:37 36.6 C 89 20 129/86 97
[2021-02-13] MEDS ORDERED: Penicillin V Potassium 250 MG Tab PO STA (12:20)
== END 2021-02-13 12:26 | disposition home or self-care (01) ==
LOC: FB.ED 11:37
DX: K04.7 Periapical abscess without sinus (principal); K02.9 Dental caries, unspecified; J45.909 Unspecified asthma, uncomplicated; Z88.5 Allergy status to narcotic agent; Z88.6 Allergy status to analgesic agent; Z91.048 Other nonmedicinal substance allergy status
CPT/HCPCS: 96372; 99282; A9270; J1885

== ENCOUNTER 2025-01-17 10:05 | Emergency (ER) | payer BC ==
[2025-01-17 11:39] LABS: BASOPHILS ABSOLUTE AUTO 0.0 x10-3/uL (0.0-0.1); EOSINOPHILS ABSOLUTE AUTO 0.1 x10-3/uL (0.0-0.8); LYMPHOCYTES ABSOLUTE AUTO 1.0 x10-3/uL (1.0-4.4); MONOCYTES ABSOLUTE AUTO 0.5 x10-3/uL (0.3-1.0); NEUTROPHILS ABSOLUTE AUTO 5.0 x10-3/uL (1.5-6.3)
[2025-01-17 11:40] LABS: BLOOD UREA NITROGEN,BUN 10 mg/dL (7-18); CARBON DIOXIDE,CO2 27 mmol/L (21-32); CHLORIDE,CL 100 mmol/L (100-110); CREATININE 1.1 mg/dL (0.55-1.02); ESTIMATED GFR 70 mL/min (>60); GLUCOSE RANDOM 96 mg/dL (80-116); POTASSIUM,K 3.9 mmol/L (3.5-5.3); SODIUM,NA 138 mmol/L (135-145)
[2025-01-17 11:41] LABS: BASOPHILS PERCENT AUTO 0.6 % (0.2-1.5); EOSINOPHILS PERCENT AUTO 1.9 % (0.6-8.1); LYMPHOCYTES PERCENT AUTO 14.4 % (18.4-52.1); MEAN PLATELET VOLUME 9.0 fL (7.1-12.4); MONOCYTES PERCENT AUTO 7.9 % (4.4-15.7); NEUTROPHILS PERCENT AUTO 75.2 % (30.8-76.2); PLATELET COUNT,PLT 255 x10(3)uL (151-488); RED BLOOD CELL COUNT 5.16 x10(6)uL (3.60-5.20); RED CELL DISTRIBUTION WIDTH 13.1 % (12.3-16.5); WHITE BLOOD CELL COUNT,WBC 6.6 x10-3/uL (3.0-10.3)
[2025-01-17 11:42] LABS: GLUCOSE,URINE NORMAL (NORMAL); OCCULT BLOOD,URINE NEGATIVE (NEGATIVE)
[2025-01-17 11:46] LABS: A/G RATIO 1.3; ALANINE AMINOTRANSFERASE,ALT 18 U/L (12-36); ASPARTATE AMNIOTRANSFERASE,AST 22 IU/L (5-25); BILIRUBIN TOTAL 1.9 mg/dL (0.1-1.3); PROTEIN TOTAL,TP 9.1 g/dL (6.0-8.0)
[2025-01-17 11:54] LABS: PRO B-TYPE NATRIUR PEPT,BNPPRO 123 pg/mL (<=125)
[2025-01-17 12:08] LABS: INFLUENZA A NAA NEGATIVE (NEGATIVE); INFLUENZA B NAA NEGATIVE (NEGATIVE); RESPIRATORY SYNCYTIAL VIR NAA NEGATIVE (NEGATIVE)
[2025-01-17 12:09] LABS: APPEARANCE,URINE CLEAR (CLEAR); SQUAMOUS EPITHELIAL CELLS,UR OCCASIONAL (NS,R,O)
[2025-01-17 12:09] LABS: CORONAVIRUS COVID-19 NAA NEGATIVE (NEGATIVE)
== END 2025-01-17 14:01 | disposition home or self-care (01) ==
LOC: FB.ED 10:05
DX: E86.0 Dehydration (principal); J06.9 Acute upper respiratory infection, unspecified; B34.9 Viral infection, unspecified; R94.31 Abnormal electrocardiogram [ECG] [EKG]; R77.9 Abnormality of plasma protein, unspecified; F17.200 Nicotine dependence, unspecified, uncomplicated; Z88.5 Allergy status to narcotic agent; Z88.8 Allergy status to other drugs, medicaments and biological substances
CPT/HCPCS: 36415; 71046; 80053; 81001; 83880; 84484; 85025; 85379; 86140; 87637; 87651; 93005; 99284